=== PATIENT | male | born 1985 | race Caucasian/White ===

== ENCOUNTER 2016-12-26 18:25 | Emergency (ER) | payer SELFPAY ==
[~2016-12-26] VITALS: Ht 180.3 cm; Wt 83.5 kg
[2016-12-26 18:32] VITALS: BP 138/56
[2016-12-26] MEDS ORDERED: MORPHINE SULFATE INJ 4 MG/ML DISP.SYRIN ONE (18:54)
[2016-12-26] MEDS ORDERED: KETOROLAC TROMETHAMINE INJ 30 MG/ML VIAL ONE (18:54)
[2016-12-26] MEDS ORDERED: ONDANSETRON 4 MG TAB.RAPDIS ONE (18:54)
[2016-12-26] MEDS ORDERED: KETOROLAC TROMETHAMINE INJ 60 MG/2 ML VIAL IM ONE (19:00)
[2016-12-26] MEDS ORDERED: MORPHINE SULFATE INJ 2 MG/ML DISP.SYRIN IM ONE (19:00)
[2016-12-26] MEDS ORDERED: ONDANSETRON 4 MG TAB.RAPDIS PO ONE (19:00)
== END 2016-12-26 20:14 | disposition home or self-care (01) ==
LOC: ER 18:31
DX: M54.5 Low back pain (principal); F17.200 Nicotine dependence, unspecified, uncomplicated; V43.52XA Car driver injured in collision with other type car in traffic accident, initial encounter; Y93.89 Activity, other specified; Y92.413 State road as the place of occurrence of the external cause; Y99.8 Other external cause status
CPT/HCPCS: 72100-TC; 72170-TC; A4606; J1885; J2270; Q0162; Z7610